=== PATIENT | male | born 1995 | race Two or more races ===

== ENCOUNTER 2016-09-06 23:21 | Emergency (ER) | payer OTHER ==
[~2016-09-06] VITALS: Ht 182.9 cm; Wt 88.5 kg
--- NOTE | 2016-09-06 23:34 | NUR ---
PT BIB [facility] FOR OK TO BOOK. DENIES PHYSICAL COMPLAINTS. NAD NOTED. RESP EVEN UNLABORED. DENIES PAIN. IN ER BED 12 IN CUSTODY.
--- NOTE | 2016-09-07 00:12 | NUR ---
[facility] in stable condition. Written and verbal after care instructions given. Patient verbalizes understanding of instruction. PT SELF CATHED AND LEFT IN HANDCUFFS WITH [employer]. VSS. PT AMBULATED OUT WITH A STEADY GAIT.
[2016-09-07 00:14] VITALS: BP 155/58
== END 2016-09-07 00:14 | disposition home or self-care (01) ==
LOC: ER 23:24
DX: Z00.8 Encounter for other general examination (principal); J45.909 Unspecified asthma, uncomplicated; G82.20 Paraplegia, unspecified
CPT/HCPCS: A4606; Z7610